=== PATIENT | male | born 1975 | race Caucasian/White ===

== ENCOUNTER 2020-07-25 15:09 | Emergency (ER) | payer BC, SELFPAY ==
[2020-07-25 15:19] VITALS: BP 151/92; PULSE 118; RESP 22; TEMP 36.6; O2SAT 98
[2020-07-25 15:26] VITALS: BP 140/87; PULSE 116; RESP 18; TEMP 36.8; O2SAT 100; BMI 41.5
[2020-07-25] MEDS: 0.9 % Sodium Chloride 1,000 ML 999 ML IVCONT (15:40)
[2020-07-25] MEDS: methylPREDNISolone Sod Succ/PF 125 MG/2 ML VIAL IVPUSH (15:41)
[2020-07-25] MEDS: Famotidine/PF 20 MG/2 ML VIAL IVPUSH (15:41)
[2020-07-25] MEDS: diphenhydrAMINE HCL 50 MG/ML VIAL IVPUSH (15:41)
[2020-07-25 15:53] VITALS: BP 140/87; PULSE 93; RESP 20; O2SAT 99
[2020-07-25 15:58] LABS: MANUAL DIFF FLAG NO
[2020-07-25 16:00] LABS: Basophils Percent Auto 0.3 % (0-2); Eosinophils Absolute Auto 0.2 X10*3/uL (0.0-0.4); Eosinophils Percent Auto 2.3 % (0-4); Hematocrit 54.6 % (42-52); Hemoglobin 18.3 g/dl (14.0-18.0); Imm Gran Abs Auto 0.09 X10*3/uL (0.00-0.03); Lymphocytes Absolute Auto 2.3 X10*3/uL (1.2-4.9); Mean Corpuscular HGB Conc 33.5 g/dl (31.0-36.0); Mean Corpuscular Hemoglobin 31.6 pg (27.0-33.0); Mean Corpuscular Volume 94.1 fL (80-98); Mean Platelet Volume 10.1 fL (9.4-12.4); Monocytes Absolute Auto 0.7 X10*3/uL (0.1-1.2); Monocytes Percent Auto 8.2 % (2-11); Neutrophils Absolute Auto 5.2 X10*3/uL (2.0-8.3); Neutrophils Percent Auto 61.2 % (45-73); Platelet Count 330 X10*3/uL (160-400); Red Cell Distribution Width 12.6 % (11.0-16.0); White Blood Count 8.6 X10*3/uL (4.8-10.8)
--- NOTE | 2020-07-25 16:20 | ED.ALLEREA ---
HPI - Allergic Reaction General Chief complaint: Allergic Reaction Stated complaint: allergic reaction Time Seen by Provider: 07/25/20 15:22 Source: patient Mode of arrival: ambulatory Limitations: no limitations History of Present Illness HPI narrative: 45-year-old male with a past medical history of hypertension and sleep apnea who was previously had allergic reaction to naproxen presenting to the ED with allergic reaction to his entire body/redness and feeling ?a knot in my throat? that started after taking a Motrin at work for body aches. Other symptoms complaints or concerns at this time. MD complaint: allergic reaction Onset (ago): minute(s) (Prior to arrival) Exposure: medication (Took [id number] Motrin) Known history of allergy to: Naproxen Symptoms: rash and other (Feeling a knot in his throat) Severity: moderate Treatment prior to arrival: none Previous Allergic Reaction History: other (Patient reports he had a prior allergic reaction to naproxen although not as see reassessed today) Related Data Previous Rx's Medication Instructions Recorded diphenhydramine HCl [Benadryl 50 mg PO TID PRN #20 tab 07/25/20 Allergy] epinephrine [EpiPen] 0.3 mg IM Q20M PRN #2 ea 07/25/20 famotidine [Pepcid] 20 mg PO BID #20 tab 07/25/20 hydrocortisone 1 appl TOPICAL QD-TID PRN #454 g 07/25/20 prednisone 40 mg PO DAILY 5 Days #10 tab 07/25/20 Allergies Allergy/AdvReac Type Severity Reaction Status Date / Time naproxen Allergy Mild rash Verified 07/25/20 16:23 Review of Systems Review of Systems: Constitutional : No Fever, No Chills , no body aches, no recent illness Head/Face: No facial swelling, No facial redness ENT/Mouth : No oral/throat swelling, No Hoarseness, No Swallowing Difficulty Eyes: No Eye Pain, No Swelling, No Redness Cardiovascular : No Chest Pain, No SOB, No palpitations Respiratory : No Cough, No Sputum, No Wheezing, No Smoke Exposure, No Dyspnea Gastrointestinal : No Nausea, No Vomiting, No Diarrhea, No abdominal Pain Genitourinary : No Dysuria, No Urinary Frequency, No Hematuria Musculoskeletal : No joint pain, No Myalgias, No Joint Swelling Skin : No Skin Lesions, positive rash Neuro : No Weakness, No Numbness, No Headache, No dizziness, No tingling Psych : No Anxiety/Panic, No Depression Heme/Lymph: No Bruising, No Lymphadenopathy Endocrine : No Polyuria, No Polydipsia Denies changes in lotions or detergents. Denies any other new medications other than the Motrin he took prior to arrival and prior to having the rash. Denies drainage from rash. Denies any recent sick contacts or recent travel. Yes all other systems are reviewed and are negative PMFSH Past Medical History Attestation statement: The following information was validated with the patient. Social History Social History Advance Directives: No Advance Directives Information Provided: Yes Physical Exam Vital Signs: Vital Signs: Last Vital Signs Temp 98.2 F 07/25/20 15:26 Pulse 93 07/25/20 15:53 Resp 20 07/25/20 15:53 BP 140/87 H 07/25/20 15:53 Pulse Ox 99 07/25/20 15:53 Body Mass Index 41.5 vital signs have been reviewed as normal and appeared to be correct. Blood pressure hypertensive. Heart rate tachycardic. Respiration rate tachypneic. Temperature normal. Oxygen saturation normal. Appearance: Alert. Oriented X3. No acute distress. Head: Normal external exam. Normocephalic. Atraumatic. Eyes: PERRLA. EOMI. Conjunctiva and sclera normal. Eyelids normal. ENT: EAC normal. TM's Normal. Pharynx normal. Uvula midline. Moist mucous membranes. No trismus noted. No drooling noted. No muffled voice noted. Neck: Normal inspection. Neck supple. FROM. No adenopathy. Thyroid Normal. No meningeal signs. No neck mass noted. CVS: Normal heart rate and rhythm. Heart sound normal. No murmurs noted. Pulses normal throughout. Respiratory: No respiratory distress. Painless inspiration. Breath sounds normal. No wheezes/rales/rhonchi noted. Chest nontender. No accessory muscle usage noted or decreased air movement noted. Abdomen: Soft and nontender. Bowel sounds normal in all 4 quadrants. No distention noted. No organomegaly noted. No visible injury noted. Back: Full range of motion noted. Skin: To the patient's entire body including the head patient has erythema which is blanching consistent with allergic reaction. Otherwise the rest of the skin is warm and dry. Normal skin turgor. No lesions/lacerations noted. Extremities:Extremities exhibit normal range of motion. Extremities nontender. Neuro: Oriented X 3. No motor deficit. No sensory deficit. Reflexes normal. Course Course Course Narrative: IMP/Plan: Allergic rxn. Not anaphylaxis. Not sepsis/ infectious etiology. Patient well appearing in no acute distress, breathing easily although reports a knot in his throat. Posterior pharynx within normal limits. Uvula is midline no inflammation. No trismus/drooling. Speaking full sentences, and handling secretions without difficulty. There is no obvious threat to airway. Lungs are CTA in all mehta. No signs of angioedema, stridor, airway compromise, anaphylaxis or anaphylactic shock. Not c/w SSSS/ TEN/ Eryth multiforme/ Raman Johnsons. Given HPI and PE - Will obtain basic labs, provide IV fluids/Solu-Medrol/Pepcid and Benadryl watch and observe. If patient symptoms improved - will d/c with return precautions. No indication for epi at this time. Patient understands and agrees with plan MDM - Allergic Reaction Medical Records Attestation: I reviewed the patient's medical records. Lab Data Attestation: I reviewed the patient's lab results. Result diagrams: 07/25/20 15:52 07/25/20 15:52 Labs: Lab Results 07/25/20 07/25/20 Range/Units 15:52 15:52 WBC 8.6 (4.8-10.8) X10*3/uL RBC 5.80 (4.60-5.80) X10*6/uL Hgb 18.3 H (14.0-18.0) g/dl Hct 54.6 H (42-52) % MCV 94.1 (80-98) fL MCH 31.6 (27.0-33.0) pg MCHC 33.5 (31.0-36.0) g/dl RDW 12.6 (11.0-16.0) % Plt Count 330 (160-400) X10*3/uL MPV 10.1 (9.4-12.4) fL Immature Gran % (Auto) 1.0 H (0.0-0.4) % Neut % (Auto) 61.2 (45-73) % Lymph % (Auto) 27.0 (20-40) % Delta % (Auto) 8.2 (2-11) % Eos % (Auto) 2.3 (0-4) % Baso % (Auto) 0.3 (0-2) % Lymph # (Auto) 2.3 (1.2-4.9) X10*3/uL Delta # (Auto) 0.7 (0.1-1.2) X10*3/uL Eos # (Auto) 0.2 (0.0-0.4) X10*3/uL Baso # (Auto) 0.0 (0.0-0.2) X10*3/uL Abs Immat Gran (auto) 0.09 H (0.00-0.03) X10*3/uL Absolute Neuts (auto) 5.2 (2.0-8.3) X10*3/uL Absolute Nucleated RBC 0.000 (0.0-0.012) X10*3/uL Nucleated RBC % (auto) 0.0 (0.0-0.2) /100WBC Sodium 139 (135-145) mmol/L Potassium 4.2 (3.3-5.1) mmol/L Chloride 104 (96-108) mmol/L Carbon Dioxide 23 (22-29) mmol/L Anion Gap 16 (12-20) BUN 19 H (9-16) mg/dL Creatinine 1.27 (0.5-1.4) mg/dL Estim Creat Clear Calc 90.1 Estimated GFR > 60 Random Glucose 126 H (60-115) mg/dL Calcium 9.3 (8.4-10.2) mg/dL Discharge Plan Discharge Clinical Impression: Allergic reaction Patient Disposition: Home, Self-Care Instructions: General Allergic Reaction (ED), Allergy Testing (ED) Prescriptions: New diphenhydramine HCl [Benadryl Allergy] 25 mg tablet 50 mg PO TID PRN (Reason: allergy symptoms) Qty: 20 RF: 0 famotidine [Pepcid] 20 mg tablet 20 mg PO BID Qty: 20 RF: 0 hydrocortisone 2.5 % ointment 1 appl topical QD-TID PRN (Reason: skin irritation) Qty: 454 RF: 0 prednisone 20 mg tablet 40 mg PO DAILY 5 Days Qty: 10 RF: 0 epinephrine [EpiPen] 0.3 mg/0.3 mL auto-injector 0.3 mg IM Q20M PRN (Reason: anaphylaxis) Qty: 2 RF: 0 Referrals: Physician,Unknown [Primary Care Provider] - 2 days (Your PCP and ask for referral for an flight engineer manager for allergy testing) Stand Alone Forms: Work/School Release Print Language: Maori
--- NOTE | 2020-07-25 16:24 | PC.NURSE ---
Patients allergic reaction improved post meds. Skin is now WPD, no longer w/ red/itchy rash on arms/hands/or fingers. States im actually feeling pretty good. NSR via tele
[2020-07-25 16:28] LABS: Anion Gap 16 (12-20); Blood Urea Nitrogen 19 mg/dL (9-16); Calcium 9.3 mg/dL (8.4-10.2); Carbon Dioxide 23 mmol/L (22-29); Chloride 104 mmol/L (96-108); Creatinine Clr Calc Pharmacy 90.1; Estimated Glomerular Filt Rate > 60; Glucose Random 126 mg/dL (60-115); Potassium 4.2 mmol/L (3.3-5.1); Sodium 139 mmol/L (135-145)
== END 2020-07-25 17:14 | disposition home or self-care (01) ==
PROVIDERS: Physician Assistant Medical; Emergency Provider Emergency Medicine
DX: L50.0 Allergic urticaria (principal); T39.315A Adverse effect of propionic acid derivatives, initial encounter; Y92.89 Other specified places as the place of occurrence of the external cause
CPT/HCPCS: 36415; 80048; 85025; 96361; 96374; 96375; 99284; J1200; J2930